=== PATIENT | female | born 1940 | race Caucasian/White ===

== ENCOUNTER 2017-01-01 11:11 | Emergency (ER) | payer MEDICARE, BC ==
[~2017-01-01] VITALS: Ht 160 cm; Wt 68.0 kg
--- NOTE | ~2017-01-01 | US85 ---
[facility] A Service of [facility] & [facility] RADIOLOGY TEXT RESULTS PATIENT: MARIO LANE LOCATION: [place] : 44 UNIT #: [id number] AGE: [address]: Mirian Xiao MD SEX: F ORDER DR: [id number] [facility] [address] [place], [place] [address] [id number] E MR#: [id number] Acc #: [id number] NAME: MARIO LANE : 1940 SEX: F STUDY DATE/TIME: 01/01/2017 14:12 UNIT: [place] ROOM: STUDY [place] [facility] [place] [employer] Attending Physician: Mirian Xiao M.D. Ordering Physician: Mirian Xiao M.D. MEDICAL IMAGING REPORT This report is preliminary unless electronic signature is present EXAM Left lower extremity venous duplex 01/01/2017 HISTORY Left lower extremity pain for 3 days. History of previous deep vein thrombosis. TECHNIQUE Venous ultrasound examination of the left lower extremity was performed using grayscale, spectral Doppler and color flow Doppler imaging. FINDINGS The examination is negative. There is no evidence of left lower extremity deep venous thrombus from the groin to the lower calf. Visualized greater saphenous vein is also patent. IMPRESSION Negative examination. No evidence of left lower extremity deep venous thrombosis. Dictated by... Lito Burrows M.D. THIS IS AN ELECTRONICALLY VERIFIED REPORT Lito Burrows M.D. at 01/04/2017 7:29 AM KRT/sebas TD: 01/01/2017 22:12 JOB #: [id number] MEDICAL IMAGING REPORT Page 1 of 1 COPY
[~2017-01-01 11:11] MED LIST: AMLODIPINE BESYL5 MG PO; ASPIRIN EC81 M1 PO; ASPIRIN ENTERI325 M1 PO; CLOPIDOGREL BIS75 MG PO; CLOPIDOGREL75 MG PO; COATED ASPIRIN325 M1 PO; COREG12.5 MG PO; COREG6.25 MG; COREG6.25 MG PO; IMDUR-ER30 M1 PO; IMDUR-ER60 MG DOB; IMDUR-ER60 MG PO; ISOSORBIDE DINI30 MG PO; KEPPRA500 MG PO; LASIX20 MG; LASIX20 MG PO; LIPITOR40 MG PO; LISINOPRIL10 MG PO; LISINOPRIL20 MG PO; MAGNESIUM400 M1 PO; NITROGLYCERIN0.4 MG SL; PLAVIX PO; PREVACID15 M1 PO; PROTONIX PO; SIMVASTATIN40 MG PO; ZESTRIL10 MG PO
[2017-01-01] MEDS ORDERED: ISOSORBIDE MONO60 M1 PO (12:32)
[2017-01-01] MEDS ORDERED: CLOPIDOGREL75 MG PO (12:32)
[2017-01-01] MEDS ORDERED: PATIENT'S PHARMACY (12:32)
[2017-01-01] MEDS ORDERED: LISINOPRIL PO (12:32)
[2017-01-01] MEDS ORDERED: LIPITOR40 MG PO (12:32)
[2017-01-01] MEDS ORDERED: COREG12.5 MG PO (12:32)
[2017-01-01] MEDS ORDERED: LASIX20 MG PO (12:33)
[2017-01-01] MEDS ORDERED: MAGNESIUM400 MG PO (12:33)
[2017-01-01 12:37] LABS: BASOPHIL# 0.1 X10e3 (0-0.3); BASOPHIL% 0.8 % (0-2.5); EOSINOPHIL# 0.2 X10e3 (0-0.7); EOSINOPHIL% 3.1 % (0.0-7.0); HEMATOCRIT 38.6 % (35.0-45.0); HEMOGLOBIN 13.2 gm/dL (12.0-16.0); LYMPHOCYTE# 1.2 X10e3 (1.0-3.5); LYMPHOCYTE% 20.1 % (17.0-45.0); MEAN CORPUSCULAR HEMOGLOBIN 30.7 PG (28-34); MEAN CORPUSCULAR HGB CONC 34.1 g/dL (30-36); MEAN PLATELET VOLUME 8.8 FL (6.5-11.5); MONOCYTE# 0.5 X10e3 (0-1.0); MONOCYTE% 8.2 % (3.0-12.0); NEUTROPHIL# 4.2 X10e3 (1.5-7.1); NEUTROPHIL% 67.8 % (40-75); PLATELET COUNT 189 X10e3 (140-420); RED BLOOD COUNT 4.29 X10e (3.90-5.30); RED CELL DISTRIBUTION WIDTH 13.1 % (11.0-15.5); WHITE BLOOD COUNT 6.2 X10e3 (4.0-10.5)
[2017-01-01 12:42] LABS: DIFF IND NO
[2017-01-01 12:52] LABS: INR 1.1; PARTIAL THROMBOPLASTIN TIME 26.2 SECONDS (23.5-31.3); PROTHROMBIN TIME (PATIENT) 11.5 SECONDS (10.0-11.7)
[2017-01-01 13:03] LABS: ALBUMIN SERUM 3.9 g/dL (3.5-5.0); BILIRUBIN, DIRECT 0.2 mg/dL (0.0-0.2); BILIRUBIN,INDIRECT 0.9 mg/dL (0.0-0.9); BILIRUBIN,TOTAL 1.1 mg/dL (0.2-2.0); BUN/CREATININE RATIO 17.5; CREATININE SERUM 0.8 mg/dL (0.6-1.4); GLOM FILT RATE Estimated 72.7 mL/min (>60); POTASSIUM 4.3 mmol/L (3.5-5.1); PROTEIN TOTAL SERUM 6.6 g/dL (6.0-8.3)
== END 2017-01-01 15:57 | disposition home or self-care (01) ==
LOC: CED 11:11
PROVIDERS: Emergency Medicine
DX: I82.812 Embolism and thrombosis of superficial veins of left lower extremity (principal); I11.0 Hypertensive heart disease with heart failure; I50.9 Heart failure, unspecified; E78.5 Hyperlipidemia, unspecified; F17.200 Nicotine dependence, unspecified, uncomplicated; Z90.710 Acquired absence of both cervix and uterus; Z90.49 Acquired absence of other specified parts of digestive tract; Z79.899 Other long term (current) drug therapy
CPT/HCPCS: 36415; 80048; 80076; 85025; 85610; 85730; 93971; 99284